=== PATIENT | female | born 1970 | race African-American/Black ===

== ENCOUNTER 2019-08-05 14:54 | Emergency (ER) | payer OTHER ==
[~2019-08-05] VITALS: Ht 170.2 cm; Wt 77.1 kg
[2019-08-05] MEDS ORDERED: OMEPRAZOLE40 MG PO (15:57)
[2019-08-05] MEDS ORDERED: IPRATROPIUM BRO15 ML NASAL (15:57)
[2019-08-05] MEDS ORDERED: VICTOZA0.6 MG/0.1 SUBQ (15:57)
[2019-08-05] MEDS ORDERED: MECLIZINE HCL25 M1 PO (15:58)
[2019-08-05] MEDS ORDERED: SINGULAIR 10 MG10 MG PO (15:58)
[2019-08-05] MEDS ORDERED: LEVO-T50 MCG PO (15:58)
[2019-08-05] MEDS ORDERED: STOOL SOFTENER100 MG PO (15:58)
[2019-08-05] MEDS ORDERED: GABAPENTIN100 MG PO (15:59)
[2019-08-05] MEDS ORDERED: NEURONTIN 400M400 M2 PO (15:59)
[2019-08-05] MEDS ORDERED: LIPITOR40 MG PO (15:59)
[2019-08-05] MEDS ORDERED: FANAPT2 MG PO (16:00)
[2019-08-05] MEDS ORDERED: TOPAMAX100 MG PO (16:00)
[2019-08-05] MEDS ORDERED: BRINTELLIX20 MG PO (16:00)
[2019-08-05] MEDS ORDERED: NYSTATIN15 G1 TOP (16:00)
[2019-08-05] MEDS ORDERED: CLARITIN10 M2 PO (16:00)
[2019-08-05] MEDS ORDERED: HYDROXYZINE PAM50 MG PO (16:01)
[2019-08-05] MEDS ORDERED: TOPROL XL50 MG PO (16:01)
[2019-08-05] MEDS ORDERED: INTERMEZZO3.5 MG PO (16:02)
[2019-08-05 16:30] LABS: ABSOLUTE NEUTROPHILS 1.8 thou/uL (1.4-8.2); BASOPHILS 0.8 % (0.0-2.0); EOSINOPHILS 1.7 % (0.0-3.0); HEMATOCRIT 38.8 % (37.0-47.0); HEMOGLOBIN 12.4 gm/dL (12.0-15.0); MCH 28.4 pg (26.0-34.0); MCHC 32.1 g/dL (28.0-37.0); MCV 88.3 fL (80.0-100.0); PLATELET COUNT 104 thou/uL (150-400); POLYS 47.5 % (36.0-66.0); RBC 4.39 mil/uL (4.20-5.00); RDW 13.9 % (10.5-14.5); WBC 3.8 thou/uL (4.0-11.0)
[2019-08-05 16:37] LABS: ANION GAP 5 mmol/L (7-16); BUN 32 mg/dL (7-18); CALCIUM 8.7 mg/dL (8.5-10.1); CHLORIDE 106 mmol/L (98-107); CO2 29 mmol/L (21-32); CREATININE 1.2 mg/dL (0.6-1.0); GLUCOSE 75 mg/dL (74-106); SODIUM 140 mmol/L (136-145)
[2019-08-05 16:46] LABS: MAGNESIUM 2.5 mg/dL (1.8-2.4); TROPONIN-I <0.06 ng/mL (<0.06)
[2019-08-05 17:24] LABS: URINE BILIRUBIN NEGATIVE (Negative); URINE BLOOD NEGATIVE (Negative); URINE CLARITY CLEAR; URINE COLOR YELLOW; URINE GLUCOSE-RANDOM* NEGATIVE (Negative); URINE KETONES NEGATIVE (Negative); URINE LEUKOCYTES-REFLEX NEGATIVE (Negative); URINE NITRITE-REFLEX NEGATIVE (Negative); URINE PROTEIN (DIPSTICK) NEGATIVE (Negative); URINE SPECIFIC GRAVITY 1.025 (1.005-1.035)
[2019-08-05 17:48] VITALS: BP 132/87
--- NOTE | 2019-08-06 08:31 | EKG ---
[facility] [place] [address] ELECTROCARDIOGRAM REPORT Name: LETI CHILRDESSNTMACY RUIZ Room #: [id number] Admission: 08/05/19 Attend Phys: Discharge: 08/05/19 Date of : 66 Report #: [id number] THIS REPORT FOR: cc: JOE - Vero family physician/PCP JOE - Vero family physician/PCP Rodrigo Manzo MD [facility] THIS REPORT FOR: //name// [facility] ED Test Date: 2019-08-05 Test Time: 16:03:55 Pat Name: MACY JACOBSepartment: Room: Gender: F 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 /EPI
== END 2019-08-05 17:49 | disposition home or self-care (01) ==
LOC: ER 14:54
PROVIDERS: Emergency Medicine
DX: R53.1 Weakness (principal); R53.83 Other fatigue; R42 Dizziness and giddiness; I48.91 Unspecified atrial fibrillation; E11.9 Type 2 diabetes mellitus without complications; Z98.84 Bariatric surgery status; Z79.899 Other long term (current) drug therapy; Z88.1 Allergy status to other antibiotic agents; Z88.6 Allergy status to analgesic agent